=== PATIENT | female | born 1970 | race African-American/Black ===

== ENCOUNTER 2017-08-25 13:21 | Emergency (ER) | payer MEDICAID, OTHER ==
[~2017-08-25] VITALS: Ht 170.2 cm; Wt 88.0 kg
[2017-08-25 13:32] VITALS: BP 110/82
== END 2017-08-25 15:09 | disposition left against medical advice (07) ==
LOC: ER 14:00
DX: Z53.21 Procedure and treatment not carried out due to patient leaving prior to being seen by health care provider (principal); I10 Essential (primary) hypertension; Z86.711 Personal history of pulmonary embolism; Z90.49 Acquired absence of other specified parts of digestive tract; Z98.890 Other specified postprocedural states